=== PATIENT | male | born 1935 | race Caucasian/White ===

== ENCOUNTER 2018-07-09 09:50 | Emergency (ER) | payer OTHER ==
[~2018-07-09] VITALS: Ht 182.9 cm; Wt 122.5 kg
[~2018-07-09 09:50] MED LIST: ASPI325 PO; INSULANPEN; LOSHYD PO; METF500 PO; RASA1 PO; SIMV40 PO
[2018-07-09 10:51] LABS: BASOPHILS ABSOLUTE AUTO 0.02 K/mm3 (0.00-0.23); BASOPHILS PERCENT AUTO 0 % (0-2); EOSINOPHILS ABSOLUTE AUTO 0.01 K/mm3 (0.00-0.68); EOSINOPHILS PERCENT AUTO 0 % (0-6); Hematocrit 39.8 % (37.0-53.0); Hemoglobin 12.7 g/dL (13.5-17.5); IMMATURE GRAN ABSOLUTE AUTO 0.07 K/mm3 (0.00-0.10); IMMATURE GRAN PERCENT AUTO 1 % (0-1); LYMPHOCYTES ABSOLUTE AUTO 0.71 K/mm3 (0.84-5.20); LYMPHOCYTES PERCENT AUTO 6 % (21-46); MONOCYTES ABSOLUTE AUTO 0.39 K/mm3 (0.16-1.47); MONOCYTES PERCENT AUTO 3 % (4-13); Mean Corpuscular HGB 29.2 pg (26.0-34.0); Mean Corpuscular HGB Conc 31.9 g/dL (31.5-36.5); Mean Corpuscular Volume 92 fL (80-100); Mean Platelet Volume 10.3 fL (9.1-12.4); NEUTROPHILS ABSOLUTE AUTO 11.14 K/mm3 (1.96-9.15); NEUTROPHILS PERCENT AUTO 90 % (41-73); Platelet Count 272 K/mm3 (150-400); RDW Coefficient Variation 14.2 % (11.7-14.2); RDW Standard Deviation 47.7 fL (35.1-46.3); Red Blood Cell Count 4.35 M/mm3 (4.30-5.90); White Blood Cell Count 12.34 K/mm3 (4.00-11.30)
[2018-07-09 11:01] LABS: International Normalized Ratio 0.99; Prothrombin Time Results 10.2 Sec (9.7-11.5)
[2018-07-09 11:09] LABS: Alanine Aminotransfer (ALT/SGP 29 U/L (12-78); Albumin, Blood 3.6 g/dL (3.4-5.0); Albumin/Globulin Ratio 0.9 (0.8-1.8); Alk Phos 91 U/L (50-136); Anion Gap 13 mmol/L (6-16); Aspartate Aminotrans (AST/SGOT 35 U/L (12-37); Bilirubin, Total 0.6 mg/dL (0.1-1.0); Blood Urea Nitrogen 21 mg/dL (8-24); Bun/Creatinine Ratio 19.4 (12.0-20.0); CO2, Blood 22 mmol/L (21-32); CPK Creatine Kinase 409 U/L (39-308); Calcium, Blood 8.9 mg/dL (8.5-10.1); Chloride, Blood 100 mmol/L (98-108); Creatinine, Blood 1.08 mg/dL (0.60-1.20); Ethanol (Alcohol), Blood, Med <3 mg/dL; Globulin, Blood 3.9 g/dL (2.2-4.0); Glomerular Filtration Rate >60 (60-); Glucose, Blood 352 mg/dL (70-99); Potassium, Blood 4.5 mmol/L (3.5-5.5); Sodium, Blood 135 mmol/L (136-145); Total Protein, Blood 7.5 g/dL (6.4-8.2)
[2018-07-09 11:45] LABS: Creatine Kinase MB 3.8 ng/mL (0.0-3.6); Creatine Kinase MB Index 0.9 (0.0-4.0)
== END 2018-07-09 12:27 | disposition short-term general hospital (02) ==
LOC: ER 09:50
PROVIDERS: Emergency Medicine
DX: S06.309A Unspecified focal traumatic brain injury with loss of consciousness of unspecified duration, initial encounter (principal); E11.65 Type 2 diabetes mellitus with hyperglycemia; R40.0 Somnolence; W19.XXXA Unspecified fall, initial encounter; I10 Essential (primary) hypertension; G20 Parkinson's disease; Z79.899 Other long term (current) drug therapy; Z79.84 Long term (current) use of oral hypoglycemic drugs; Z79.82 Long term (current) use of aspirin; Z79.4 Long term (current) use of insulin
CPT/HCPCS: 36415; 70450; 71046; 72125; 80053; 82550; 82553; 82947; 84484; 85025; 85610; 85730; 86850; 86900; 86901; 93005; 93010; 96365; 96366; 96375; 99285-25; G0480; J7030; J7050

== ENCOUNTER 2019-02-22 18:23 | Emergency (ER) | payer OTHER ==
[~2019-02-22] VITALS: Ht 172.7 cm; Wt 85.3 kg
[2019-02-22] MEDS ORDERED: ATOR20 PO (18:53)
[2019-02-22] MEDS ORDERED: SINEMET 25-1001 EACH PO (18:53)
[2019-02-22] MEDS ORDERED: AMLO10 PO (18:53)
[2019-02-22] MEDS ORDERED: Prozac20 MG PO (18:54)
[2019-02-22] MEDS ORDERED: HYDRA25 PO (18:54)
[2019-02-22] MEDS ORDERED: INSULANPEN SC (18:55)
[2019-02-22] MEDS ORDERED: LEVSOD25 PO (18:55)
[2019-02-22] MEDS ORDERED: PRAM.125 PO (18:56)
[2019-02-22] MEDS ORDERED: LOSA50 PO (18:56)
[2019-02-22] MEDS ORDERED: METF500 PO (18:56)
[2019-02-22 19:45] LABS: Calcium, Ionized (POC) 1.22 mmol/L (1.10-1.46); Chloride (POC) 106 mmol/L (98-108); Creatinine (POC) 1.1 mg/dL (0.8-1.3); Glucose (ISTAT POC) 257 mg/dL (70-99); Hemoglobin (POC) 13.6 g/dL (13.5-17.5); Potassium (POC) 4.8 mmol/L (3.5-5.5); Sodium (POC) 142 mmol/L (135-148); Total CO2 (POC) 27 mmol/L (21-32)
== END 2019-02-22 21:34 | disposition home or self-care (01) ==
LOC: ER 18:23
PROVIDERS: Emergency Medicine
DX: G93.40 Encephalopathy, unspecified (principal); F03.90 Unspecified dementia, unspecified severity, without behavioral disturbance, psychotic disturbance, mood disturbance, and anxiety; E11.9 Type 2 diabetes mellitus without complications; E78.5 Hyperlipidemia, unspecified; I25.10 Atherosclerotic heart disease of native coronary artery without angina pectoris; I25.2 Old myocardial infarction; G20 Parkinson's disease; I10 Essential (primary) hypertension; Z79.4 Long term (current) use of insulin; Z79.899 Other long term (current) drug therapy
CPT/HCPCS: 70450; 80047; 85014; 93005; 93010; 99285-25

== ENCOUNTER → 2019-09-15 | Outpatient (CLI) | payer OTHER ==
[~2019-09-15] MED LIST changes: +AMLO10 PO; +ATOR20 PO; +HYDRA25 PO; +INSULANPEN SC; +LEVSOD25 PO; +LOSA50 PO; +PRAM.125 PO; +Prozac20 MG PO; +SINEMET 25-1001 EACH PO
[2019-09-16 11:29] LABS: Bilirubin, Urine Neg (Neg); Blood, Urine Neg (Neg); Glucose Qualitative, Urine 3+ (Neg); Ketones, Urine Neg (Neg); Leukocyte Esterase, Urine 1+ (Neg); Nitrite, Urine Neg (Neg); Protein, Urine 2+ (Neg); Urobilinogen, Urine NORM (Normal)
[2019-09-16 11:46] LABS: Appearance, Urine Clear (Clear); Color, Urine Yellow (P-Yellow)
[2019-09-16 11:47] LABS: Bacteria Many /hpf; Red Blood Cells, Urine 0-2 /hpf (0-2); Squamous Epithelial Cells Not Seen /hpf (Few); White Blood Cells, Urine 0-2 /hpf (0-5)
== END ==
LOC: LAB 19:45 → LAB SHORT 19:45
PROVIDERS: Family Medicine
DX: N39.0 Urinary tract infection, site not specified (principal)
CPT/HCPCS: 81001; 87086

== ENCOUNTER → 2020-05-10 | Outpatient (CLI) | payer OTHER ==
[2020-05-11 20:04] LABS: Appearance, Urine Clear (Clear); Bilirubin, Urine Neg (Neg); Blood, Urine Neg (Neg); Color, Urine Amber (P-Yellow); Glucose Qualitative, Urine Neg (Neg); Ketones, Urine Neg (Neg); Leukocyte Esterase, Urine 2+ (Neg); Nitrite, Urine Neg (Neg); Protein, Urine 2+ (Neg); Specific Gravity, Urine 1.015 (1.003-1.022); Urobilinogen, Urine NORM (Normal)
[2020-05-11 20:14] LABS: Amorphous Mod (0-Heavy); Bacteria Mod /hpf; Red Blood Cells, Urine 0-2 /hpf (0-2); Squamous Epithelial Cells Few /hpf (Few); White Blood Cells, Urine 0-2 /hpf (0-5)
== END ==
LOC: LAB 19:37 → LAB SHORT 19:37
PROVIDERS: Family Medicine
DX: N39.0 Urinary tract infection, site not specified (principal)
CPT/HCPCS: 81001; 87077; 87086; 87186

== ENCOUNTER → 2020-06-06 | Outpatient (CLI) | payer OTHER ==
[2020-06-08 13:30] LABS: Appearance, Urine Clear (Clear); Bilirubin, Urine Neg (Neg); Blood, Urine Neg (Neg); Color, Urine Yellow (P-Yellow); Glucose Qualitative, Urine 4+ (Neg); Ketones, Urine Neg (Neg); Leukocyte Esterase, Urine Neg (Neg); Nitrite, Urine Neg (Neg); Protein, Urine Neg (Neg); Urobilinogen, Urine NORM (Normal)
== END | disposition home or self-care (01) ==
LOC: LAB 10:10
PROVIDERS: Family Medicine
DX: N39.0 Urinary tract infection, site not specified (principal)
CPT/HCPCS: 81003

== ENCOUNTER → 2020-06-09 | Outpatient (CLI) | payer OTHER ==
[2020-06-09 18:42] LABS: Hematocrit 37.7 % (37.0-53.0); Hemoglobin 11.4 g/dL (13.5-17.5); Mean Corpuscular HGB 28.9 pg (26.0-34.0); Mean Corpuscular HGB Conc 30.2 g/dL (31.5-36.5); Mean Corpuscular Volume 96 fL (80-100); Platelet Count 257 K/mm3 (150-400); RDW Coefficient Variation 13.8 % (11.7-14.2); RDW Standard Deviation 48.8 fL (35.1-46.3); Red Blood Cell Count 3.94 M/mm3 (4.30-5.90); White Blood Cell Count 7.17 K/mm3 (4.00-11.30)
== END ==
LOC: LAB SHORT 15:26
PROVIDERS: Family Medicine
DX: E11.9 Type 2 diabetes mellitus without complications (principal); Z51.81 Encounter for therapeutic drug level monitoring; F02.81 Dementia in other diseases classified elsewhere, unspecified severity, with behavioral disturbance; G31.83 Neurocognitive disorder with Lewy bodies; R60.1 Generalized edema
CPT/HCPCS: 83036; 85027

== ENCOUNTER → 2020-07-07 | Outpatient (CLI) | payer OTHER ==
[2020-07-07 19:21] LABS: BASOPHILS ABSOLUTE AUTO 0.06 K/mm3 (0.00-0.23); BASOPHILS PERCENT AUTO 1 % (0-2); EOSINOPHILS ABSOLUTE AUTO 0.56 K/mm3 (0.00-0.68); EOSINOPHILS PERCENT AUTO 8 % (0-6); Hematocrit 36.9 % (37.0-53.0); Hemoglobin 11.4 g/dL (13.5-17.5); IMMATURE GRAN ABSOLUTE AUTO 0.02 K/mm3 (0.00-0.10); IMMATURE GRAN PERCENT AUTO 0 % (0-1); LYMPHOCYTES ABSOLUTE AUTO 1.43 K/mm3 (0.84-5.20); LYMPHOCYTES PERCENT AUTO 21 % (21-46); MONOCYTES ABSOLUTE AUTO 0.39 K/mm3 (0.16-1.47); MONOCYTES PERCENT AUTO 6 % (4-13); Mean Corpuscular HGB 29.4 pg (26.0-34.0); Mean Corpuscular HGB Conc 30.9 g/dL (31.5-36.5); Mean Corpuscular Volume 95 fL (80-100); NEUTROPHILS ABSOLUTE AUTO 4.36 K/mm3 (1.96-9.15); NEUTROPHILS PERCENT AUTO 64 % (41-73); RDW Coefficient Variation 13.8 % (11.7-14.2); Red Blood Cell Count 3.88 M/mm3 (4.30-5.90); White Blood Cell Count 6.82 K/mm3 (4.00-11.30)
[2020-07-07 19:39] LABS: Albumin, Blood 3.8 g/dL (3.4-5.0); Bilirubin, Total 0.3 mg/dL (0.1-1.0); Calcium, Blood 9.5 mg/dL (8.5-10.1); Creatinine, Blood 1.64 mg/dL (0.60-1.20); Globulin, Blood 3.7 g/dL (2.2-4.0); Potassium, Blood 4.2 mmol/L (3.5-5.5); Total Protein, Blood 7.5 g/dL (6.4-8.2)
== END | disposition home or self-care (01) ==
LOC: LAB SHORT 14:03
PROVIDERS: Family Medicine
DX: I11.0 Hypertensive heart disease with heart failure (principal); I50.9 Heart failure, unspecified; E11.9 Type 2 diabetes mellitus without complications; G30.9 Alzheimer's disease, unspecified
CPT/HCPCS: 80053; 83880; 85025

== ENCOUNTER → 2020-09-27 | Outpatient (CLI) | payer OTHER ==
[2020-09-28 15:18] LABS: Bilirubin, Urine Neg (Neg); Blood, Urine Neg (Neg); Glucose Qualitative, Urine 3+ (Neg); Ketones, Urine Neg (Neg); Leukocyte Esterase, Urine Neg (Neg); Nitrite, Urine Neg (Neg); Protein, Urine Neg (Neg); Specific Gravity, Urine 1.005 (1.003-1.022); Urobilinogen, Urine NORM (Normal)
[2020-09-28 15:32] LABS: Appearance, Urine Clear (Clear); Color, Urine Pale Yellow (P-Yellow)
== END | disposition home or self-care (01) ==
LOC: LAB 11:00 → LAB SHORT 11:00
PROVIDERS: Family Medicine
DX: N39.0 Urinary tract infection, site not specified (principal)
CPT/HCPCS: 81003

== ENCOUNTER → 2021-01-06 | Outpatient (CLI) | payer OTHER ==
[2021-01-06 19:13] LABS: BASOPHILS ABSOLUTE AUTO 0.03 K/mm3 (0.00-0.23); BASOPHILS PERCENT AUTO 1 % (0-2); EOSINOPHILS PERCENT AUTO 5 % (0-6); Hematocrit 29.5 % (37.0-53.0); Hemoglobin 9.2 g/dL (13.5-17.5); IMMATURE GRAN ABSOLUTE AUTO 0.02 K/mm3 (0.00-0.10); IMMATURE GRAN PERCENT AUTO 0 % (0-1); LYMPHOCYTES ABSOLUTE AUTO 1.23 K/mm3 (0.84-5.20); LYMPHOCYTES PERCENT AUTO 19 % (21-46); MONOCYTES PERCENT AUTO 8 % (4-13); Mean Corpuscular HGB 28.9 pg (26.0-34.0); Mean Corpuscular HGB Conc 31.2 g/dL (31.5-36.5); Mean Corpuscular Volume 93 fL (80-100); Mean Platelet Volume 10.4 fL (9.1-12.4); NEUTROPHILS ABSOLUTE AUTO 4.25 K/mm3 (1.96-9.15); NEUTROPHILS PERCENT AUTO 67 % (41-73); Platelet Count 258 K/mm3 (150-400); RDW Coefficient Variation 13.8 % (11.7-14.2); RDW Standard Deviation 46.9 fL (35.1-46.3); Red Blood Cell Count 3.18 M/mm3 (4.30-5.90); White Blood Cell Count 6.33 K/mm3 (4.00-11.30)
[2021-01-06 21:31] LABS: Alanine Aminotransfer (ALT/SGP 14 U/L (12-78); Albumin, Blood 3.4 g/dL (3.4-5.0); Alk Phos 168 U/L (50-136); Anion Gap 6 mmol/L (6-16); Aspartate Aminotrans (AST/SGOT 21 U/L (12-37); Bilirubin, Total 0.3 mg/dL (0.1-1.0); Blood Urea Nitrogen 39 mg/dL (8-24); Bun/Creatinine Ratio 22.4 (12.0-20.0); CHOL/HDL RATIO 4.4; CO2, Blood 26 mmol/L (21-32); Calcium, Blood 8.4 mg/dL (8.5-10.1); Chloride, Blood 105 mmol/L (98-108); Cholesterol 136 mg/dL (50-200); Creatinine, Blood 1.74 mg/dL (0.60-1.20); Free Thyroxine 0.66 ng/dL (0.70-1.60); Globulin, Blood 3.5 g/dL (2.2-4.0); Glomerular Filtration Rate 40 (60-); Glucose, Blood 246 mg/dL (70-99); HDL Cholesterol 31 mg/dL (>39); LDL/HDL RATIO 2.2; Low Density Lipoprotein Chol 68 mg/dL (0-110); Potassium, Blood 4.7 mmol/L (3.5-5.5); Sodium, Blood 137 mmol/L (136-145); Total Protein, Blood 6.9 g/dL (6.4-8.2); Triglycerides 185 mg/dL (30-160); Very Low Density Lipoprot Chol 37 mg/dL (6-32)
== END | disposition home or self-care (01) ==
LOC: LAB SHORT 16:02
PROVIDERS: Family Medicine
DX: E03.9 Hypothyroidism, unspecified (principal); E78.5 Hyperlipidemia, unspecified; E11.9 Type 2 diabetes mellitus without complications; F02.81 Dementia in other diseases classified elsewhere, unspecified severity, with behavioral disturbance; I10 Essential (primary) hypertension
CPT/HCPCS: 80053; 80061; 83036; 83880; 84439; 84443; 85025

== ENCOUNTER → 2021-06-30 | Outpatient (CLI) | payer OTHER ==
[2021-06-30 13:00] LABS: Hematocrit 33.9 % (37.0-53.0); Hemoglobin 10.5 g/dL (13.5-17.5); Mean Corpuscular HGB 27.8 pg (26.0-34.0); Mean Corpuscular Volume 90 fL (80-100); Mean Platelet Volume 10.6 fL (9.1-12.4); Platelet Count 269 K/mm3 (150-400); RDW Coefficient Variation 16.2 % (11.7-14.2); RDW Standard Deviation 53.6 fL (35.1-46.3); Red Blood Cell Count 3.78 M/mm3 (4.30-5.90); White Blood Cell Count 7.07 K/mm3 (4.00-11.30)
[2021-06-30 13:36] LABS: Alanine Aminotransfer (ALT/SGP 13 U/L (12-78); Albumin, Blood 3.5 g/dL (3.4-5.0); Albumin/Globulin Ratio 0.8 (0.8-1.8); Alk Phos 150 U/L (50-136); Anion Gap 9 mmol/L (6-16); Aspartate Aminotrans (AST/SGOT 26 U/L (12-37); Bilirubin, Total 0.3 mg/dL (0.1-1.0); Blood Urea Nitrogen 40 mg/dL (8-24); Bun/Creatinine Ratio 19.4 (12.0-20.0); CHOL/HDL RATIO 3.1; CO2, Blood 23 mmol/L (21-32); Calcium, Blood 9.4 mg/dL (8.5-10.1); Chloride, Blood 111 mmol/L (98-108); Cholesterol 132 mg/dL (50-200); Creatinine, Blood 2.06 mg/dL (0.60-1.20); Globulin, Blood 4.3 g/dL (2.2-4.0); Glomerular Filtration Rate 31 (60-); Glucose, Blood 112 mg/dL (70-99); HDL Cholesterol 43 mg/dL (>39); LDL/HDL RATIO 1.6; Low Density Lipoprotein Chol 70 mg/dL (0-110); Potassium, Blood 4.8 mmol/L (3.5-5.5); Sodium, Blood 143 mmol/L (136-145); Thyroxine (T4) 4.6 ug/dL (4.5-12.1); Total Protein, Blood 7.8 g/dL (6.4-8.2); Triglycerides 95 mg/dL (30-160); Very Low Density Lipoprot Chol 19 mg/dL (6-32)
== END | disposition home or self-care (01) ==
LOC: LAB SHORT 11:50
PROVIDERS: Family Medicine
DX: I11.0 Hypertensive heart disease with heart failure (principal); I50.9 Heart failure, unspecified; E11.9 Type 2 diabetes mellitus without complications; G20 Parkinson's disease; F02.81 Dementia in other diseases classified elsewhere, unspecified severity, with behavioral disturbance
CPT/HCPCS: 80053; 80061; 83036; 84436; 84443; 85027

== ENCOUNTER 2021-08-02 12:27 | Emergency (ER) | payer OTHER ==
[~2021-08-02] VITALS: Ht 172.7 cm; Wt 87.2 kg
[~2021-08-02 12:27] MED LIST changes: -AMLO10 PO; -ATOR20 PO; -SINEMET 25-1001 EACH PO
[2021-08-02] MEDS ORDERED: DONEPEZIL HCL10 MG PO (12:42)
[2021-08-02] MEDS ORDERED: FURO80 PO (12:44)
[2021-08-02] MEDS ORDERED: FURO40 PO (12:44)
[2021-08-02] MEDS ORDERED: INSULANI SC ×2 (12:45→12:46)
[2021-08-02] MEDS ORDERED: Naltrexone HCl50 MG PO (12:47)
[2021-08-02] MEDS ORDERED: POTA10T PO (12:48)
[2021-08-02] MEDS ORDERED: QUET100 PO (12:49)
[2021-08-02] MEDS ORDERED: Seroquel Xr50 MG PO (12:49)
[2021-08-02] MEDS ORDERED: TRAZ100 PO (12:50)
[2021-08-02] MEDS ORDERED: LORA.5 PO (12:52)
[2021-08-02] MEDS ORDERED: ATOR20 PO (12:53)
[2021-08-02] MEDS ORDERED: SINEMET 25-1001 EAC1 PO (12:53)
[2021-08-02] MEDS ORDERED: AMLO10 PO (12:53)
[2021-08-02 14:29] LABS: BASOPHILS ABSOLUTE AUTO 0.02 K/mm3 (0.00-0.23); BASOPHILS PERCENT AUTO 0 % (0-2); EOSINOPHILS ABSOLUTE AUTO 0.13 K/mm3 (0.00-0.68); EOSINOPHILS PERCENT AUTO 2 % (0-6); Hematocrit 35.8 % (37.0-53.0); Hemoglobin 11.2 g/dL (13.5-17.5); IMMATURE GRAN ABSOLUTE AUTO 0.02 K/mm3 (0.00-0.10); IMMATURE GRAN PERCENT AUTO 0 % (0-1); LYMPHOCYTES ABSOLUTE AUTO 0.89 K/mm3 (0.84-5.20); LYMPHOCYTES PERCENT AUTO 17 % (21-46); MONOCYTES ABSOLUTE AUTO 0.39 K/mm3 (0.16-1.47); MONOCYTES PERCENT AUTO 7 % (4-13); Mean Corpuscular HGB 28.6 pg (26.0-34.0); Mean Corpuscular HGB Conc 31.3 g/dL (31.5-36.5); Mean Corpuscular Volume 91 fL (80-100); Mean Platelet Volume 10.2 fL (9.1-12.4); NEUTROPHILS ABSOLUTE AUTO 3.88 K/mm3 (1.96-9.15); NEUTROPHILS PERCENT AUTO 73 % (41-73); Platelet Count 187 K/mm3 (150-400); RDW Coefficient Variation 16.3 % (11.7-14.2); RDW Standard Deviation 54.3 fL (35.1-46.3); Red Blood Cell Count 3.92 M/mm3 (4.30-5.90); White Blood Cell Count 5.33 K/mm3 (4.00-11.30)
[2021-08-02 14:44] LABS: Bun/Creatinine Ratio 21.8 (12.0-20.0); Calcium, Blood 9.3 mg/dL (8.5-10.1); Creatinine, Blood 2.2 mg/dL (0.60-1.20); Potassium, Blood 4.9 mmol/L (3.5-5.5)
[2021-08-02 15:53] LABS: Source, Urine Straight Cath
[2021-08-02 15:55] LABS: Bilirubin, Urine Neg (Neg); Blood, Urine 1+ (Neg); Glucose Qualitative, Urine Neg (Neg); Ketones, Urine Neg (Neg); Leukocyte Esterase, Urine Neg (Neg); Nitrite, Urine Neg (Neg); Protein, Urine 2+ (Neg); Specific Gravity, Urine 1.015 (1.003-1.022); Urobilinogen, Urine NORM (Normal)
[2021-08-02 16:03] LABS: Appearance, Urine Hazy (Clear); Color, Urine Pale Yellow (P-Yellow)
[2021-08-02 16:04] LABS: Squamous Epithelial Cells Rare /hpf (Few); White Blood Cells, Urine 0-2 /hpf (0-5)
[2021-08-02 16:05] LABS: Bacteria Rare /hpf
== END 2021-08-02 18:10 | disposition home or self-care (01) ==
LOC: ER 12:27
PROVIDERS: Student in an Organized Health Care Education/Training Program
DX: G20 Parkinson's disease (principal); E86.0 Dehydration; R62.51 Failure to thrive (child); E11.9 Type 2 diabetes mellitus without complications; I10 Essential (primary) hypertension; I25.10 Atherosclerotic heart disease of native coronary artery without angina pectoris; I25.2 Old myocardial infarction; E78.5 Hyperlipidemia, unspecified; Z79.899 Other long term (current) drug therapy; Z79.4 Long term (current) use of insulin; Z79.891 Long term (current) use of opiate analgesic
CPT/HCPCS: 36415; 51701; 80048; 81001; 85025; 99284

== ENCOUNTER → 2021-10-26 | Outpatient (CLI) | payer OTHER ==
[~2021-10-26] MED LIST changes: +AMLO10 PO; +ATOR20 PO; +DONEPEZIL HCL10 MG PO; +FURO40 PO; +FURO80 PO; +INSULANI SC; +LORA.5 PO; +Naltrexone HCl50 MG PO; +POTA10T PO; +QUET100 PO; +SINEMET 25-1001 EAC1 PO; +Seroquel Xr50 MG PO; +TRAZ100 PO
[2021-10-26 12:23] LABS: Albumin, Blood 3.6 g/dL (3.4-5.0); Albumin/Globulin Ratio 1.2 (0.8-1.8); BASOPHILS ABSOLUTE AUTO 0.02 K/mm3 (0.00-0.23); BASOPHILS PERCENT AUTO 0 % (0-2); Bilirubin, Total 0.2 mg/dL (0.1-1.0); Bun/Creatinine Ratio 25.3 (12.0-20.0); Calcium, Blood 8.7 mg/dL (8.5-10.1); Creatinine, Blood 2.33 mg/dL (0.60-1.20); EOSINOPHILS ABSOLUTE AUTO 0.15 K/mm3 (0.00-0.68); EOSINOPHILS PERCENT AUTO 2 % (0-6); Globulin, Blood 3.1 g/dL (2.2-4.0); Hematocrit 35.2 % (37.0-53.0); Hemoglobin 11.1 g/dL (13.5-17.5); IMMATURE GRAN ABSOLUTE AUTO 0.01 K/mm3 (0.00-0.10); IMMATURE GRAN PERCENT AUTO 0 % (0-1); LYMPHOCYTES ABSOLUTE AUTO 1.25 K/mm3 (0.84-5.20); LYMPHOCYTES PERCENT AUTO 18 % (21-46); MONOCYTES ABSOLUTE AUTO 0.37 K/mm3 (0.16-1.47); MONOCYTES PERCENT AUTO 5 % (4-13); Mean Corpuscular HGB 29.8 pg (26.0-34.0); Mean Corpuscular HGB Conc 31.5 g/dL (31.5-36.5); Mean Corpuscular Volume 95 fL (80-100); Mean Platelet Volume 10.5 fL (9.1-12.4); NEUTROPHILS ABSOLUTE AUTO 5.36 K/mm3 (1.96-9.15); NEUTROPHILS PERCENT AUTO 75 % (41-73); Platelet Count 227 K/mm3 (150-400); Potassium, Blood 4.3 mmol/L (3.5-5.5); Red Blood Cell Count 3.72 M/mm3 (4.30-5.90); Total Protein, Blood 6.7 g/dL (6.4-8.2); White Blood Cell Count 7.16 K/mm3 (4.00-11.30)
== END | disposition home or self-care (01) ==
LOC: LAB SHORT 11:03
PROVIDERS: Family Medicine
DX: E11.9 Type 2 diabetes mellitus without complications (principal); E78.2 Mixed hyperlipidemia
CPT/HCPCS: 80053; 83036; 85025

== ENCOUNTER → 2022-03-21 | Outpatient (CLI) | payer OTHER ==
[2022-03-22 12:31] LABS: Source, Urine Clean Catch
[2022-03-22 13:26] LABS: Bilirubin, Urine Neg (Neg); Blood, Urine Neg (Neg); Glucose Qualitative, Urine Neg (Neg); Ketones, Urine Neg (Neg); Leukocyte Esterase, Urine Neg (Neg); Nitrite, Urine Neg (Neg); Protein, Urine Neg (Neg); Specific Gravity, Urine 1.015 (1.003-1.022); Urobilinogen, Urine NORM (Normal)
[2022-03-22 13:57] LABS: Appearance, Urine Clear (Clear); Color, Urine Pale Yellow (P-Yellow)
== END | disposition home or self-care (01) ==
LOC: LAB SHORT 19:00
PROVIDERS: Family Medicine
DX: N39.0 Urinary tract infection, site not specified (principal)
CPT/HCPCS: 81003

== ENCOUNTER 2022-04-12 21:00 | Emergency (ER) | payer OTHER ==
[~2022-04-12] VITALS: Ht 188 cm; Wt 81.7 kg
[2022-04-12 21:34] LABS: BASOPHILS ABSOLUTE AUTO 0.01 K/mm3 (0.00-0.23); BASOPHILS PERCENT AUTO 0 % (0-2); EOSINOPHILS ABSOLUTE AUTO 0.01 K/mm3 (0.00-0.68); EOSINOPHILS PERCENT AUTO 0 % (0-6); Hemoglobin 11.9 g/dL (13.5-17.5); IMMATURE GRAN ABSOLUTE AUTO 0.02 K/mm3 (0.00-0.10); IMMATURE GRAN PERCENT AUTO 0 % (0-1); LYMPHOCYTES ABSOLUTE AUTO 0.31 K/mm3 (0.84-5.20); LYMPHOCYTES PERCENT AUTO 4 % (21-46); MONOCYTES ABSOLUTE AUTO 0.28 K/mm3 (0.16-1.47); MONOCYTES PERCENT AUTO 3 % (4-13); Mean Corpuscular HGB 31.2 pg (26.0-34.0); Mean Corpuscular HGB Conc 31.3 g/dL (31.5-36.5); Mean Corpuscular Volume 100 fL (80-100); NEUTROPHILS ABSOLUTE AUTO 7.92 K/mm3 (1.96-9.15); NEUTROPHILS PERCENT AUTO 93 % (41-73); RDW Coefficient Variation 14.5 % (11.7-14.2); RDW Standard Deviation 52.4 fL (35.1-46.3); Red Blood Cell Count 3.82 M/mm3 (4.30-5.90); White Blood Cell Count 8.55 K/mm3 (4.00-11.30)
[2022-04-12 21:40] LABS: Mean Platelet Volume 10.5 fL (9.1-12.4); Platelet Count 212 K/mm3 (150-400)
[2022-04-12 21:51] LABS: Albumin, Blood 3.7 g/dL (3.4-5.0); Albumin/Globulin Ratio 0.8 (0.8-1.8); Bilirubin, Total 0.4 mg/dL (0.1-1.0); Calcium, Blood 9.3 mg/dL (8.5-10.1); Creatinine, Blood 2.54 mg/dL (0.60-1.20); Globulin, Blood 4.7 g/dL (2.2-4.0); Potassium, Blood 5.1 mmol/L (3.5-5.5); Total Protein, Blood 8.4 g/dL (6.4-8.2)
[2022-04-13 00:12] LABS: Influenza A, PCR NEGATIVE (NEGATIVE); Influenza B, PCR NEGATIVE (NEGATIVE); Resp Syncytial Virus, PCR NEGATIVE (NEGATIVE); SARS-Cov-2 (COVID-19) PCR, MMC NEGATIVE (NEGATIVE)
== END 2022-04-13 02:10 | disposition home or self-care (01) ==
LOC: ER 21:00
PROVIDERS: Student in an Organized Health Care Education/Training Program
DX: R19.7 Diarrhea, unspecified (principal); G20 Parkinson's disease; F02.80 Dementia in other diseases classified elsewhere, unspecified severity, without behavioral disturbance, psychotic disturbance, mood disturbance, and anxiety; I25.10 Atherosclerotic heart disease of native coronary artery without angina pectoris; I25.2 Old myocardial infarction; I12.9 Hypertensive chronic kidney disease with stage 1 through stage 4 chronic kidney disease, or unspecified chronic kidney disease; E11.22 Type 2 diabetes mellitus with diabetic chronic kidney disease; N18.9 Chronic kidney disease, unspecified; E78.5 Hyperlipidemia, unspecified; G30.9 Alzheimer's disease, unspecified; Z20.822 Contact with and (suspected) exposure to COVID-19; Z79.890 Hormone replacement therapy; Z79.4 Long term (current) use of insulin; Z79.899 Other long term (current) drug therapy
CPT/HCPCS: 0241U; 36415; 74176; 80053; 83605; 83690; 85025; 99284-25; J7030

== ENCOUNTER → 2022-04-14 | Outpatient (CLI) | payer OTHER ==
[2022-04-14 13:20] LABS: BASOPHILS ABSOLUTE AUTO 0.02 K/mm3 (0.00-0.23); BASOPHILS PERCENT AUTO 0 % (0-2); EOSINOPHILS PERCENT AUTO 2 % (0-6); Hematocrit 33.7 % (37.0-53.0); Hemoglobin 10.2 g/dL (13.5-17.5); IMMATURE GRAN ABSOLUTE AUTO 0.01 K/mm3 (0.00-0.10); IMMATURE GRAN PERCENT AUTO 0 % (0-1); LYMPHOCYTES ABSOLUTE AUTO 1.05 K/mm3 (0.84-5.20); LYMPHOCYTES PERCENT AUTO 22 % (21-46); MONOCYTES ABSOLUTE AUTO 0.53 K/mm3 (0.16-1.47); MONOCYTES PERCENT AUTO 11 % (4-13); Mean Corpuscular HGB 30.5 pg (26.0-34.0); Mean Corpuscular HGB Conc 30.3 g/dL (31.5-36.5); Mean Corpuscular Volume 101 fL (80-100); Mean Platelet Volume 10.7 fL (9.1-12.4); NEUTROPHILS PERCENT AUTO 64 % (41-73); Platelet Count 204 K/mm3 (150-400); RDW Coefficient Variation 14.5 % (11.7-14.2); RDW Standard Deviation 52.4 fL (35.1-46.3); Red Blood Cell Count 3.34 M/mm3 (4.30-5.90); White Blood Cell Count 4.71 K/mm3 (4.00-11.30)
[2022-04-14 13:44] LABS: Alanine Aminotransfer (ALT/SGP 28 U/L (12-78); Albumin, Blood 3.3 g/dL (3.4-5.0); Albumin/Globulin Ratio 0.8 (0.8-1.8); Alk Phos 184 U/L (50-136); Anion Gap 6 mmol/L (6-16); Aspartate Aminotrans (AST/SGOT 25 U/L (12-37); Bilirubin, Total 0.5 mg/dL (0.1-1.0); Blood Urea Nitrogen 64 mg/dL (8-24); Bun/Creatinine Ratio 24.2 (12.0-20.0); CHOL/HDL RATIO 3.5; CO2, Blood 26 mmol/L (21-32); Calcium, Blood 8.8 mg/dL (8.5-10.1); Chloride, Blood 118 mmol/L (98-108); Cholesterol 128 mg/dL (50-200); Creatinine, Blood 2.64 mg/dL (0.60-1.20); Globulin, Blood 4.1 g/dL (2.2-4.0); Glomerular Filtration Rate 23 (60-); Glucose, Blood 95 mg/dL (70-99); HDL Cholesterol 37 mg/dL (>39); LDL/HDL RATIO 1.8; Low Density Lipoprotein Chol 68 mg/dL (0-110); Potassium, Blood 4.2 mmol/L (3.5-5.5); Sodium, Blood 150 mmol/L (136-145); Thyroxine (T4) 4.5 ug/dL (4.5-12.1); Total Protein, Blood 7.4 g/dL (6.4-8.2); Triglycerides 114 mg/dL (30-160); Very Low Density Lipoprot Chol 22 mg/dL (6-32)
== END | disposition home or self-care (01) ==
LOC: LAB 09:53 → LAB SHORT 09:53
PROVIDERS: Family Medicine
DX: E87.0 Hyperosmolality and hypernatremia (principal); E78.5 Hyperlipidemia, unspecified; E11.9 Type 2 diabetes mellitus without complications; I10 Essential (primary) hypertension
CPT/HCPCS: 80053; 80061; 83036; 84436; 84443; 85025

== ENCOUNTER → 2022-05-01 | Outpatient (CLI) | payer OTHER ==
[2022-05-01 18:34] LABS: Source, Urine Voided
[2022-05-01 18:56] LABS: Appearance, Urine Clear (Clear); Bilirubin, Urine Neg (Neg); Blood, Urine Neg (Neg); Glucose Qualitative, Urine Neg (Neg); Ketones, Urine Neg (Neg); Leukocyte Esterase, Urine Neg (Neg); Nitrite, Urine Neg (Neg); Protein, Urine Neg (Neg); Specific Gravity, Urine 1.015 (1.003-1.022); Urobilinogen, Urine NORM (Normal)
[2022-05-01 19:04] LABS: Color, Urine Pale Yellow (P-Yellow)
== END | disposition home or self-care (01) ==
LOC: LAB SHORT 18:31 → LAB 18:31
PROVIDERS: Family Medicine
DX: N39.0 Urinary tract infection, site not specified (principal)
CPT/HCPCS: 81003

== ENCOUNTER 2022-06-10 13:11 | Inpatient (IN) | payer OTHER ==
[~2022-06-10] VITALS: Ht 172.7 cm; Wt 79.4 kg
[2022-06-10 13:53] LABS: BASOPHILS ABSOLUTE AUTO 0.01 K/mm3 (0.00-0.23); BASOPHILS PERCENT AUTO 0 % (0-2); EOSINOPHILS ABSOLUTE AUTO 0.09 K/mm3 (0.00-0.68); EOSINOPHILS PERCENT AUTO 2 % (0-6); Hematocrit 30.9 % (37.0-53.0); Hemoglobin 9.9 g/dL (13.5-17.5); IMMATURE GRAN ABSOLUTE AUTO 0.01 K/mm3 (0.00-0.10); IMMATURE GRAN PERCENT AUTO 0 % (0-1); LYMPHOCYTES ABSOLUTE AUTO 1.25 K/mm3 (0.84-5.20); LYMPHOCYTES PERCENT AUTO 22 % (21-46); MONOCYTES ABSOLUTE AUTO 0.41 K/mm3 (0.16-1.47); MONOCYTES PERCENT AUTO 7 % (4-13); Mean Corpuscular HGB 31.1 pg (26.0-34.0); Mean Corpuscular Volume 97 fL (80-100); Mean Platelet Volume 11.1 fL (9.1-12.4); NEUTROPHILS ABSOLUTE AUTO 4.02 K/mm3 (1.96-9.15); NEUTROPHILS PERCENT AUTO 69 % (41-73); Platelet Count 153 K/mm3 (150-400); RDW Coefficient Variation 14.1 % (11.7-14.2); RDW Standard Deviation 50.5 fL (35.1-46.3); Red Blood Cell Count 3.18 M/mm3 (4.30-5.90); White Blood Cell Count 5.79 K/mm3 (4.00-11.30)
[2022-06-10 14:21] LABS: Albumin, Blood 3.4 g/dL (3.4-5.0); Albumin/Globulin Ratio 0.9 (0.8-1.8); Bilirubin, Total 0.2 mg/dL (0.1-1.0); Bun/Creatinine Ratio 28.6 (12.0-20.0); Calcium, Blood 8.2 mg/dL (8.5-10.1); Creatinine, Blood 2.2 mg/dL (0.60-1.20); Globulin, Blood 3.6 g/dL (2.2-4.0); Potassium, Blood 4.5 mmol/L (3.5-5.5)
[2022-06-10 15:56] LABS: Source, Urine Clean Catch
[2022-06-10 16:02] LABS: Appearance, Urine Clear (Clear); Bilirubin, Urine Neg (Neg); Blood, Urine 3+ (Neg); Color, Urine Yellow (P-Yellow); Glucose Qualitative, Urine Neg (Neg); Ketones, Urine Neg (Neg); Leukocyte Esterase, Urine Neg (Neg); Nitrite, Urine Neg (Neg); Protein, Urine Neg (Neg); Specific Gravity, Urine 1.015 (1.003-1.022); Urobilinogen, Urine NORM (Normal)
[2022-06-10 16:25] LABS: Bacteria Rare /hpf; Renal Epithelial Few /hpf (0-Rare); Squamous Epithelial Cells Not Seen /hpf (Few); White Blood Cells, Urine 0-2 /hpf (0-5)
[2022-06-10 16:26] LABS: Hyaline Casts 0-2 /lpf (0-2)
[2022-06-11] MEDS ORDERED: DIAZ2 PO (00:42)
[2022-06-11] MEDS ORDERED: ONDA4ODT MM (00:43)
[2022-06-11] MEDS ORDERED: LORA.5 PO (00:43)
[2022-06-11 01:10] LABS: Source, Urine Foley catheter
[2022-06-11 01:13] LABS: Bilirubin, Urine Neg (Neg); Blood, Urine 4+ (Neg); Glucose Qualitative, Urine Neg (Neg); Ketones, Urine Neg (Neg); Leukocyte Esterase, Urine Neg (Neg); Nitrite, Urine Neg (Neg); Protein, Urine Neg (Neg); Urobilinogen, Urine NORM (Normal)
[2022-06-11 01:25] LABS: Appearance, Urine Clear (Clear); Color, Urine Yellow (P-Yellow)
[2022-06-11 01:27] LABS: Bacteria Few /hpf; Squamous Epithelial Cells Rare /hpf (Few); White Blood Cells, Urine 0-2 /hpf (0-5)
--- NOTE | 2022-06-11 02:19 | NUR ---
PATIENT CAME TO [facility] AT 2307. UNRESPONSIVE BUT FLEXION WITH PAINFUL STIMULI AND MOANS. CBG WAS CRITICALLY LOW, 1/2 AMP D50 GIVEN. PATIENTS MAP WAS BELOW 60, NS BOLUS GIVEN. REPEAT CBG'S IMPROVED BUT THEN TRENDED DOWN. PLACED PT ON D5 1/2NS GTT. REPEAT CBG SHOWED STILL TRENDING DOWN, D10 ORDERED AND GLUCAGON. CBG IS MUCH IMPROVED, REFER TO LAB RESULTS. BLADDER SCANNED PT TO FIND OVER 999ML URINE IN BLADDER. ORDER GIVEN FOR SINHA CATHETER AND URINE SENT. DRAINING URINE 300-400ML AT A TIME Q1H TO PREVENT ELECTROLYTE SHIFTS.
[2022-06-11 03:34] LABS: Hematocrit 24.5 % (37.0-53.0); Hemoglobin 7.9 g/dL (13.5-17.5); Mean Corpuscular HGB Conc 32.2 g/dL (31.5-36.5); Mean Corpuscular Volume 96 fL (80-100); Mean Platelet Volume 10.6 fL (9.1-12.4); Platelet Count 143 K/mm3 (150-400); RDW Coefficient Variation 14.3 % (11.7-14.2); RDW Standard Deviation 50.2 fL (35.1-46.3); Red Blood Cell Count 2.55 M/mm3 (4.30-5.90); White Blood Cell Count 7.01 K/mm3 (4.00-11.30)
[2022-06-11 03:49] LABS: Albumin, Blood 2.8 g/dL (3.4-5.0); Anion Gap 4 mmol/L (6-16); Blood Urea Nitrogen 57 mg/dL (8-24); Bun/Creatinine Ratio 27.3 (12.0-20.0); CO2, Blood 25 mmol/L (21-32); Calcium, Blood 7.4 mg/dL (8.5-10.1); Chloride, Blood 118 mmol/L (98-108); Creatinine, Blood 2.09 mg/dL (0.60-1.20); Glomerular Filtration Rate 31 (60-); Glucose, Blood 100 mg/dL (70-99); Magnesium, Blood 2.8 mg/dL (1.6-2.4); Phosphorus, Blood 3.4 mg/dL (2.5-4.9); Potassium, Blood 4.1 mmol/L (3.5-5.5); Sodium, Blood 147 mmol/L (136-145)
--- NOTE | 2022-06-11 06:27 | NUR ---
Patient remained unresponsive to anything other than painful stimuli for which he moans and retracts. Arms kept in a flexed position at elbows and faint tremors noted t/o (Hx of parkinsons). Despite sounding "gurgly" upon arrival, LS clear t/o. Suctioned thick walters sputum from back of throat that he coughed up. Shallow breathing pattern. Afib on tele 80's. Hypotensive this shift with MAP ranging from high 50's to 70, with boluses being given. Diarrhea x1 moderate amounts of pasty brown consistency. D10 gtt now at 125ml/hr, second dose of glucagon given and 2nd amp of D50 given as well as a 1/2 amp. Patients CBG continues to go up with each D50 push, then starts decreasing within the hour. Meza cath draining freely, urine has changed to cranberry with some clots noted. Will report to oh [facility].
--- NOTE | 2022-06-11 10:34 | NUR ---
CARE ASSUMPTION THIS RN ASSUMED CARE FORM ESAU TOLBERT AT 0700. TELE SR. BP HYPOTENSIVE. SPO2 >90% ON 2L NC. SEE VITAL SIGNS SECTION. PATIENT IS OBTUNDED. PATIENT RESPONDS TO PAINFUL STIMULI. PATIENT LUNG SOUNDS ARE COARSE WITH FINE CRACKLES IN LOWER LOBES BILATERALLY. SKIN IS FARGILE WITH SCRATCHES AND SCABS ON LEGS, ARMS AND ABD. PATIENT HAS A SINHA CATH IN PLACE DRAINING WITH GRAVITY, CRANBERRY COLOR. INCONTIENT OF BOWEL, ATTENDS IN PLACE. SEE SHIFT ASSESSMENT FOR FURHTER DETIALS. PATIENT IS REPOSITIONED Q2 AND IS TOTAL CARE. ORAL CARE DONE THIS AM. SEE ADLS FOR FURTHER INFORMATION. PATIENT CBG RANGES FROM 50-90 AND IS MEDICATED PER ORDERS, SEE EMAR, AND Q1 HOUR BLOOD SUGAR CHECKS. NO SEIZURE ACTIVITY SINCE ASSUMING CARE. SEIZURE PRECAUTIONS ARE IN PLACE AND BED IS IN LOWEST POSITION. SEE EMAR TO SEE FLUIDS INFUSING. PLAN OF CARE IS UP TO DATE. CALL LIGHT WITHIN REACH AND BED IN LOWEST POSITION. WILL CONTINUE TO MONITOR AND PROVIDE CARE.
--- NOTE | 2022-06-11 11:38 | NUR ---
SPOKE TO FACILITY RN THIS RN SPOKE TO THE RN AT [facility]. THIS RN UPDATED THE RN ON THE PATIENTS CURRENT CONDITION. THIS RN FOUND OUT PATIENT HAD A RECENT SWALLOW EVAL AND IT SHOWED THAT THE PATIEN ASPIRATES SOMETIMES AND IS ON THICKENED FLUIDS. PATIENT IS ABLE TO FEED HIMSELF AND WALK AROUND AT BASELINE. BASELINE MENTATION IS ALERT AND ORIENTED TO SELF. PATIENT HAS A COURT APPOINTED BLAKE, SANNA [facility] [phone]. THE FACILITY RN IS CALLING TO INFORM THE [place] THAT THE PATIENT IS AT THE HOSPITAL. THIS RN'S GAME DESIGN INSTRUCTOR ZAHIDA, CALLED [facility], AND IS AWAITING A RETURNED PHONE CALL. THE FACILITY RN STATED TO HACE THE BLAKE, SANNA, TO INFORM THE FAMILY (SON AND BROTHER) THAT THE PATIENT IS HERE.
--- NOTE | 2022-06-11 17:48 | NUR ---
SHIFT SUMMARY PATIENT NEURO REMAINS THE SAME. PATIENT RECIEVED ONE LITER OF LR, SEE EMAR, DUE TO LOW MAP, SEE VITAL SIGNS SECTION. PATIENT BLOOD SUGARS HAVE IMPROVDED, SEE LAB SECTION. PATIENT HAS D10 INFUSING, SEE EMAR. THIS RN SPOKE WITH SANNA AND PROVIDED WITH AN UPDATE. THIS RN ALSO SPOKE TO THE PATIENTS SON, WHO IS IN THE ROOM, WHO RECEIVED AN UPDATE FROM SANNA. NO ACUTE CHANGES THIS SHIFT. WILL CONTINUE TO MONITOR AND PROVIDE CARE UNTIL HAND OFF WITH NEXT SHIFT.
[2022-06-11 18:57] LABS: PCO2 Arterial 40.6 mmHg (35-45); PO2 Arterial 78.5 mmHg (80-100); pH Blood Arterial 7.35 (7.35-7.45)
--- NOTE | 2022-06-11 20:30 | NUR ---
When repositioning and getting CBG on patient, patient opened his eyes and looked at this RN. When I asked if patient was comfortable, he said "No I am not". Repositioned again and patient fell asleep.
--- NOTE | 2022-06-11 23:13 | NUR ---
Resident contacted regarding patients D10 gtt and increasing CBG's, resident states it's okay to titrate gtt to desired CBG. Currently gtt is now going at 100ml/hr and q1 CBG's continue.
[2022-06-12 03:39] LABS: Hematocrit 24.5 % (37.0-53.0); Mean Corpuscular HGB 31.3 pg (26.0-34.0); Mean Corpuscular HGB Conc 32.7 g/dL (31.5-36.5); Mean Corpuscular Volume 96 fL (80-100); Mean Platelet Volume 10.6 fL (9.1-12.4); Platelet Count 150 K/mm3 (150-400); RDW Coefficient Variation 14.1 % (11.7-14.2); RDW Standard Deviation 49.7 fL (35.1-46.3); Red Blood Cell Count 2.56 M/mm3 (4.30-5.90); White Blood Cell Count 5.07 K/mm3 (4.00-11.30)
[2022-06-12 03:53] LABS: Bun/Creatinine Ratio 22.1 (12.0-20.0); Calcium, Blood 7.8 mg/dL (8.5-10.1); Creatinine, Blood 1.81 mg/dL (0.60-1.20); Potassium, Blood 3.9 mmol/L (3.5-5.5)
--- NOTE | 2022-06-12 05:48 | NUR ---
Patient is still not oriented, unsure of baseline mentation. Patient is talking more and asks what his CBG was. VSS. CBG is holding steady between 130-150, D10 gtt has been titrated down to 80ml/hr. Continuing Q1 CBG checks. Meza catheter still draining good amounts of cranberry colored urine, although mailing section clerk from previous night. Will report to dayshift RN.
--- NOTE | 2022-06-12 13:15 | NUR ---
Pt is an 86 year old man with a history of Parkinsons and Dementia who resides at [facility] in [place], [place]. He was brought to the ED via ambulance for what appeared to be a seizure at [facility]. While in the ED, he was diagnosed with new onset seizures and atrial fibrillation. He has since been having unstable blood sugars and has required D10 IV, then titrated to D5 via IV. Pt's blood sugars are beginning to hold. Spoke to pt's guardian Isabella who goes by "Alina". Alina has been in contact with pt's family today, and they are all on board with keeping pt's code status as DNR, along with a hospice evaluation if pt's condition worsens, or fails to stabilize. Palliative care to remain available.
--- NOTE | 2022-06-12 15:32 | NUR ---
SHIFT SUMMARY PT HAS BEEN RESTING IN BED. PT HAS OPENED EYES TO SOUND. THEY HAVE RESPONDED APPROPRIATELY TO SOME SIMPLE COMMANDS. PT HAS SPOKEN WORDS THAT ARE OUT OF CONTEXT WITH CONVERSATION OR QUESTIONS. FAMILY MEMBER AT BEDSIDE STATED THAT THEY HAVE BEEN SPEAKING " THOUGH IT WAS 50 YEARS AGO." A TELEPHONE CONVERSATION WITH THE PT'S GUARDIAN VERIFIED THAT THIS IS CLOSE TO THE BASELINE MENTAL STATUS. THIS RN ATTEMPTED TO PERFORM A BEDSIDE SWALLOW EVALUATION TWICE. THE PT WOULD NOT COOPERATE, WHEN A TEASPOON OF WATER WAS OFFERED THEY WOULD PUSH IT AWAY OR STATE "I DON'T NEED ANY WATER." CBG'S WERE CHECKED EVERY HOUR UNTIL 1200 AT WHICH POINT THIS RN CHECKED EVERY OTHER HOUR PER HELP DESK SUPPORT SPECIALIST RECOMMENDATION. FAMILY HAS BEEN AT BEDSIDE FOR A MAJORITY OF THE DAY. VITAL SIGNS HAVE REMAINED STEADY WITH NO CHANGES IN PT CONDITION.
--- NOTE | 2022-06-13 05:36 | NUR ---
Patient much more awake this shift, asks questions and cooperates with care. Still A/O to self only. Maintains over 92% on RA, LS clear on top and dim at bases. Bedside swallow eval failed, speech eval ordered. D5 1/2NS at 55ml/hr with CBGs in low 100's with Q2 CBG checks. Patient continues to have multiple bouts of loose foul diarrhea, placed patient in enteric precautions and sent stool sample for testing. Urine color is much improved and very minimally pink. Will report to dayshift RN.
[2022-06-13 07:58] LABS: C DIFFICILE DNA NEGATIVE (Negative)
--- NOTE | 2022-06-13 12:09 | NUR ---
Spoke with Primary RN González and discussed case. Pt is full care and has poor appetite. Pt hallucinating as well. Pt resting in bed and is pleasantly confused. Pt's daughter at bedside. Offered supportive listening as daughter discusses events leading up to Pt needing a guardian. Listened as daughter reports Pt has said in the past before developing dementia that he would not want his life prolonged being in his current state. Continued therapeutic listening and offered emotional support. Called and spoke with Dr Henry. Discussed case and plan. Dr Henry is in agreement for hospice after medically stable. Called and spoke with Pt's guardian Isabella. Isabella reports being in agreement of hospice services as well. Isabella reports no preference on hospice agencies and would like [facility] facility to choose agency. Spoke with RN Lupe Penny and relayed information. Palliative Care will remain available.
--- NOTE | 2022-06-13 17:27 | NUR ---
SHIFT SUMMARY PT HAS BEEN RESTING IN BED THROUGHOUT THE DAY. PT HAS HAD PERIODS OF BEING FULLY ALERT AND ACKNOWLEDGING OTHERS IN THE ROOM BY LOOKING AT THEM. OTHER PERIODS THE PT APPEARED SOMNOLENT AND WAS MORE DIFFICULT TO ROUSE. PT TALKED OFTEN WITH SOME WORDS CLEARLY INTELLIGIBLE AND MOST WORDS MUMBLED/UNINTELLIGIBLE. PT APPEARED TO BE EXPERIENCING VISUAL HALLUCINATIONS THE DAY PROGRESSED. PT WAS FULLY ASSISTED WITH MEALS AND DEMONSTRATED MINIMAL TO NO INTEREST IN FOOD OR DRINK. BLOOD GLUCOSE REMAINED STABLE ([id number]), ALL OTHER VITALS REMAINED STABLE AND ON TREND. FAMILY MEMBERS WERE PRESENT AT BEDSIDE FOR A MAJORITY OF THE DAY.
--- NOTE | 2022-06-13 19:53 | NUR ---
ASSUMPTION OF CARE: NEURO: ALERT TO SELF, NONSENSICAL SPEAKING, AND MOVEMENTS, OCCASIONALLY PILL ROLLS. MOVES ALL EXTREMS GENERALIZED WEAKNESS. PULM: DIM IN BASES, SOME MILD UPPER RESPIRATORY COARSNESS, CLEAR OTHERWISE. SPO2 >94% ON RA R IN WNL. NO SIGN OF ACUTE DISTRESS. CARDIAC: 1ST DEGREE 60'S NO SIGN OF ACUTE CARDIAC DISTRESS, CANNOT ENDORSE VERBALLY ANY CHEST PAIN, ASSESSMENT FROM THIS RN SHOWS ANY DISTRESS. GI/: COMPLETELY INCONTINENT, CHECK AND CHANGE Q1-Q2. INDWELLING SINHA IN PLACE. NO SIGNS OF INFECTIONS CLEANING PREFORMED WITH EACH INCONTINENT EPISODE. Q2 CBG, DEX 5% IN STANDBY. WILL CONTINUE TO MONITOR UNTIL SHIFT CHANGE NO CONCERNS FROM THIS RN AT THIS TIME.
--- NOTE | 2022-06-14 05:40 | NUR ---
SHIFT SUMMARY I ASSUMED CARE OF THE PT AT 0100 TODAY. PT HAS BEEN FAIRLY CONFUSED, BUT IS A&O TO SELF. HE HAS BEEN A Q2 TURN, AND SLEEPING MOST OF THE SHIFT. THE PT DENIES SOB AND ANGINA. HIS SP02 IS >90% ON ROOM AIR, AND HAS BEEN 80'S ON TELE. BED ALARM ON, BED IN LOW, THREE SIDE RAILS UP. WILL CONTINUE TO MONITOR UNTIL SHIFT REPORT IS GIVEN TO THE ONCOMING SHIFT RN. SEE NOTES FOR ANY UPDATES.
[2022-06-14 09:29] LABS: Bun/Creatinine Ratio 13.5 (12.0-20.0); Creatinine, Blood 1.92 mg/dL (0.60-1.20); Potassium, Blood 4.2 mmol/L (3.5-5.5)
--- NOTE | 2022-06-14 18:43 | NUR ---
END OF SHIFT NOTE PT SLEEPING MAJORITY OF SHIFT, WAKES FOR SHORT SPANS ONLY THEN GOES BACK TO SLEEP. PT SPEECH MUMBLED & DIFFICULT TO UNDERSTAND. PT NOT ANSWERING Q's. UNABLE TO ASSESS ORIENTATION. PT DOES NOT FOLLOW INSTRUCTIONS. PT SLEEPING MAJORITY OF TIME. VSS. SPO2 > 92% ON RA. MONITOR SHOWING NSR, HR 70s. PT NPO. Q4H CBG MONITORING W/ CBG's STABLE. SINHA CATH PATENT & DRAINING YELLOW URINE.
--- NOTE | 2022-06-15 04:59 | NUR ---
SHIFT SUMMARY PT IS OBTUNDED THIS SHIFT. HE HAS MUTTERED SOME WORDS, BUT IS NOT SPEAKING APPROPRIATELY. HE HAS BEEN A Q2 HOUR TURN, AND HAS NEEDED TO BE CHANGED MULTIPLE TIMES T/O THE SHIFT. HE IS INC BM AND HAS A SINHA DRAINING TO GRAVITY. HE HAS BEEN SR 60'S-70'S, SP02 >90% T/O THE SHIFT, AND HAS NOT HAD ANY PHYSICAL INDICATIONS/SIGNS OF DISCOMFORT. PT HAS SEIZURE PADS ON THE BED, BED IN LOW, BED ALARM ON, AND CALL LIGHT IN REACH. WILL CONTINUE TO MONITOR UNTIL SHIFT REPORT IS GIVEN TO THE ONCOMING SHIFT RN. SEE NOTES FOR ANY UPDATES.
--- NOTE | 2022-06-15 13:13 | NUR ---
DISCHARGE W/ HOSPICE PT SLEEPING MAJORITY OF TIME, & DOES NOT WAKE DURING CARE. PT FAMILY AT BEDSIDE. VSS. SPO2 > 92% ON RA. PIVs & BHARATH DEXTER DC'd. TRANSPORT ARRIVE TO TAKE PT TO [facility] ON HOSPICE. PT TAKEN BY FABRIZIO W/ FAMILY PRESENT @ APPROX 1300.
== END 2022-06-15 13:08 | disposition home or self-care (01) | DRG 101 ==
LOC: ER 13:11 → PCU 19:52 → ERHOLD 19:52 → PCU 23:07
PROVIDERS: Emergency Medicine; Family Medicine; Internal Medicine; ADMIT Internal Medicine
DX: G40.89 Other seizures (principal); E87.0 Hyperosmolality and hypernatremia; I95.9 Hypotension, unspecified; G20 Parkinson's disease; G30.9 Alzheimer's disease, unspecified; F02.80 Dementia in other diseases classified elsewhere, unspecified severity, without behavioral disturbance, psychotic disturbance, mood disturbance, and anxiety; Z51.5 Encounter for palliative care; I25.10 Atherosclerotic heart disease of native coronary artery without angina pectoris; R54 Age-related physical debility; E11.649 Type 2 diabetes mellitus with hypoglycemia without coma; I48.91 Unspecified atrial fibrillation; E78.5 Hyperlipidemia, unspecified; N18.9 Chronic kidney disease, unspecified; E11.22 Type 2 diabetes mellitus with diabetic chronic kidney disease; I12.9 Hypertensive chronic kidney disease with stage 1 through stage 4 chronic kidney disease, or unspecified chronic kidney disease; I69.398 Other sequelae of cerebral infarction; G93.89 Other specified disorders of brain; Z79.899 Other long term (current) drug therapy; Z79.01 Long term (current) use of anticoagulants; Z79.4 Long term (current) use of insulin; Z79.02 Long term (current) use of antithrombotics/antiplatelets; I25.2 Old myocardial infarction; Z98.890 Other specified postprocedural states; Z95.5 Presence of coronary angioplasty implant and graft; Z87.891 Personal history of nicotine dependence
CPT/HCPCS: 36415; 36600; 51701; 51702; 70450; 70551; 71045; 74018; 76770; 80048; 80053; 80069; 81001; 82803; 82947; 83036; 83605; 83735; 85025; 85027; 87493; 92526; 92610; 93005; 93010; 94762; 96361-59; 96365-59; 96375-59; 99285-25; C1751; J1610; J1650; J1953; J2060; J7030; J7042; J7050; J7060; J7120